=== PATIENT | female | born 1995 | race Caucasian/White ===

== ENCOUNTER 2016-10-12 14:26 | Emergency (ER) | payer SELFPAY ==
[2016-10-12 15:41] VITALS: BP 104/68
--- NOTE | 2016-10-12 15:54 | UC ---
Knee Pain HPI - HPI Summary HPI Summary: pt presents with c/o bilateral knee pain and bruising. pt was walking at work 3 days ago and slipped and fell onto hands and knees. Ptc/o right knee pain and bruising on bilateral anterior knees. - History of Current Complaint Chief Complaint: UCLowerExtremity Stated Complaint: BILATERAL KNEE INJURY WC Time Seen by Provider: 10/12/16 15:34 Hx Obtained From: Patient Hx Last Menstrual Period: 09/11/16 ?: No Onset/Duration: Gradual Onset, Lasting Days - 2 Severity Initially: Mild Severity Currently: Mild Character: Dull, Aching Aggravating Factor(s): Prolonged Standing Alleviating Factor(s): Rest, Position Associated Signs And Symptoms: Positive: Bruising - bilateral anterior knees Able to Bear Weight: Yes - Risk Factors Septic Arthritis Risk Factor: Negative Gout Risk Factor: Negative - Allergies/Home Medications Allergies/Adverse Reactions: Allergies Allergy/AdvReac Type Severity Reaction Status Date / Time Amoxicillin [From Augmentin] Allergy Intermediate Rash Verified 10/12/16 15:35 Clavulanic Acid Allergy Intermediate Rash Verified 10/12/16 15:35 [From Augmentin] PMH/Surg Hx/FS Hx/Imm Hx Previously Healthy: Yes - Surgical History Surgical History: Yes Surgery Procedure, Year, and Place: tonsilectomy - Family History Known Family History: Positive: Cardiac Disease - Social History Occupation: Employed Full-time Lives: With Family Alcohol Use: None Substance Use Type: None Smoking Status (MU): Never Smoked Tobacco Have You Smoked in the Last Year: No - Immunization History Vaccination Up to Date: Yes Review of Systems Constitutional: Negative Skin: Bruising - bilateral anterior knees Eyes: Negative ENT: Negative Respiratory: Negative Cardiovascular: Negative Gastrointestinal: Negative Genitourinary: Negative Motor: Negative Neurovascular: Negative Musculoskeletal: Edema - rigth knee anterior. Neurological: Negative Psychological: Negative All Other Systems Reviewed And Are Negative: Yes Physical Exam Triage Information Reviewed: Yes Appearance: Well-Appearing Vital Signs: Initial Vital Signs Temp 98.2 F 10/12/16 15:36 Pulse 75 10/12/16 15:36 Resp 16 10/12/16 15:36 BP 104/68 10/12/16 15:36 Pulse Ox 98 10/12/16 15:36 Vital Signs Reviewed: Yes Eye Exam: Normal ENT Exam: Normal Neck exam: Normal Respiratory Exam: Normal Cardiovascular Exam: Normal Musculoskeletal Exam: Other Musculoskeletal: Positive: Strength Intact, ROM Intact, Edema @ - right anterior knee non pitting, at joint space Neurological Exam: Normal Psychological Exam: Normal Skin Exam: Other - two small, dime size bruises on left anterior knee; 1 half dollar size bruise to right anterior knee. Knee Pain Course/Dx - Differential Dx/Diagnosis Differential Diagnosis/HQI/PQRI: Contusion, Fracture (Closed) Provider Diagnoses: bilateral knee contusions. right knee arthralgia Discharge - Discharge Plan Condition: Stable Disposition: HOME Patient Education Materials: Knee Pain (ED) Forms: *Work Release Referrals: Abhijit Ma MD [Primary Care Provider] - If Needed
== END 2016-10-12 16:00 | disposition home or self-care (01) ==
LOC: UCCORT 14:26
DX: S80.02XA Contusion of left knee, initial encounter (principal); S80.01XA Contusion of right knee, initial encounter; M25.561 Pain in right knee; W01.0XXA Fall on same level from slipping, tripping and stumbling without subsequent striking against object, initial encounter; Y93.01 Activity, walking, marching and hiking; Y92.9 Unspecified place or not applicable
CPT/HCPCS: 99201; G0463